=== PATIENT | female | born 1975 | race Two or more races ===

== ENCOUNTER 2025-02-27 19:10 | Emergency (ER) | payer MEDICAID ==
[~2025-02-27] VITALS: Ht 157.5 cm; Wt 54.4 kg
[2025-02-27 19:45] LABS: BASOPHILS # (AUTO) 0.1 K/UL (0.0-0.2); BASOPHILS % (AUTO) 0.6 % (0.0-2.0); EOSINOPHILS # (AUTO) 0.3 K/uL (0.0-0.7); EOSINOPHILS % (AUTO) 3.1 % (0.0-7.0); HEMATOCRIT 37.8 % (31.2-41.9); HEMOGLOBIN 13.1 g/dL (10.9-14.3); LYMPHOCYTES # (AUTO) 1.4 K/uL (0.8-4.8); LYMPHOCYTES % (AUTO) 13.2 % (20.5-51.5); MEAN CORPUSCULAR HEMOGLOBIN 27.7 uug (24.7-32.8); MEAN CORPUSCULAR HGB CONC 35 g/dL (32.3-35.6); MEAN CORPUSCULAR VOLUME 80.1 fL (75.5-95.3); MONOCYTES # (AUTO) 0.6 K/uL (0.1-1.30); MONOCYTES % (AUTO) 5.7 % (0.0-11.0); NEUTROPHILS % (AUTO) 77.4 % (38.5-71.5); PLATELET COUNT (AUTO) 347 K/uL (179-408); RED BLOOD CELL COUNT(AUTO) 4.72 MIL/uL (3.63-4.92); RED CELL DISTRIBUTION WIDTH 13.9 % (12.3-17.7); WHITE BLOOD COUNT (AUTO) 10.3 K/uL (3.8-11.8)
[2025-02-27 19:46] LABS: DIFFERENTIAL COMMENT 1
[2025-02-27] MEDS ORDERED: ACETAMINOPHEN 500 MG TABLET ONE ×2 (19:50→20:01)
[2025-02-27 19:51] LABS: CALCIUM 8.7 mg/dL (8.5-10.1); CREATININE 0.7 mg/dL (0.6-1.3); POTASSIUM 4.4 mmol/L (3.5-5.1)
[2025-02-27] MEDS: ACETAMINOPHEN 500 MG TABLET PO ONE (19:56)
[2025-02-27 19:57] LABS: ALBUMIN 3.8 g/dL (3.4-5.0); BILIRUBIN,TOTAL 0.4 mg/dL (0.2-1.0); C-REACTIVE PROTEIN 0.26 mg/dL (0.00-0.30)
[2025-02-27] MEDS ORDERED: IOHEXOL 300MG/ML 100 ML INFUS..BTL ONE (20:10)
[2025-02-27] MEDS ORDERED: IV NORMAL SALINE 250 ML IV ONE (20:11)
[2025-02-27] MEDS ORDERED: SWABABLE VALVE TRANSFER SET EA MC ONE (20:11)
[2025-02-27 20:17] LABS: *URINE HCG, QUAL NEGATIVE (NEGATIVE)
[2025-02-27] MEDS ORDERED: DOXY-326 PO (22:36)
[2025-02-27] MEDS ORDERED: BACI30OI9 TP (22:36)
[2025-02-27 22:49] VITALS: BP 105/72; TEMP 97.6; O2SAT 99
== END 2025-02-27 22:48 | disposition home or self-care (01) ==
LOC: ER 19:10
DX: R22.1 Localized swelling, mass and lump, neck (principal); M54.2 Cervicalgia; L03.211 Cellulitis of face; L70.0 Acne vulgaris; F17.210 Nicotine dependence, cigarettes, uncomplicated; Z85.3 Personal history of malignant neoplasm of breast; Z88.0 Allergy status to penicillin; Z60.2 Problems related to living alone
CPT/HCPCS: 99284; 70490; 80053; 84703; 85025; 86140; 36415; Q9967; A4606; A4663; A9150